=== PATIENT | female | born 1980 | race Caucasian/White ===

== ENCOUNTER 2017-01-05 11:25 | Emergency (ER) | payer MEDICAID ==
[~2017-01-05] VITALS: Ht 167.6 cm; Wt 111.0 kg
[~2017-01-05 11:25] MED LIST: B-COTAB41 PO; CIPR500T4 PO; NAPR-576 PO; OMEP20TA PO; PYRI200T4 PO; TAB-TAB PO
[2017-01-05 11:28] VITALS: BP 126/89; PULSE 91; RESP 16; TEMP 98.7; O2SAT 97
--- NOTE | 2017-01-05 12:34 | RADHPO ---
EXAM DATE/TIME: 01/05/2017 12:05 [facility] COMPARISON: CHEST SINGLE AP, March 30, 2016, 19:36. INDICATIONS : Short of breath, cough. MEDICAL HISTORY : Arthritis. Ulcerative colitis. Gastroesophageal reflux disease. SURGICAL HISTORY : Tonsillectomy. Hysterectomy. section. Lumpectomy. ENCOUNTER: Initial ACUITY: 2 days PAIN SCORE: 0/10 LOCATION: chest FINDINGS: The cardiac silhouette is enlarged in transverse diameter. The lungs are free of acute parenchymal op acity. No effusions are identified. Osseous structures are intact. CONCLUSION: Cardiomegaly. No acute cardiopulmonary disease. Randell Hernández MD on January 05, 2017 at 12:32 Board Certified Radiologist. This report was verified electronically.
[2017-01-05] MEDS ORDERED: ALBU6.7H INH (13:14)
[2017-01-05] MEDS ORDERED: SUDA30TA2 PO (13:14)
[2017-01-05] MEDS ORDERED: CIPR750T2 PO (13:14)
--- NOTE | 2017-01-05 13:14 | PD ---
HPI Chief Complaint: Cold / Flu Symptoms Time Seen by Provider: 13:09 Travel History International Travel<30 days: No Contact w/Intl Traveler<30days: No Traveled to known affect area: No History of Present Illness HPI 36-year-old female with history of smoking, bronchitis, sinusitis in the past, presents to the ER today because she has had 3 weeks' history of sinus congestion, pain around the maxillary sinuses, coughing, nasal congestion, sore throat, and shortness of breath. She denies any fevers or any other issues. She states that it feels like her previous episodes of bronchitis. Modifying Factors: None Associated Signs & Symptoms: Cough, cold symptoms, sinus congestion, shortness of breath Risk Factors: Smoking, previous bronchitis PFSH Past Medical History Hx Anticoagulant Therapy: No Arthritis: Yes (Osteo-) Asthma: Yes Autoimmune Disease: No Anxiety: Yes Depression: Yes Heart Rhythm Problems: No Cancer: No Cardiovascular Problems: No High Cholesterol: No Chemotherapy: No Chest Pain: No Congestive Heart Failure: No COPD: No Cerebrovascular Accident: No Diabetes: No Diminished Hearing: No Endocrine: No Gastrointestinal Disorders: Yes (ULCERATIVE COLITIS) GERD: Yes Genitourinary: No Headaches: Yes (ON AND OFF) Hiatal Hernia: No Hypertension: No Immune Disorder: No Implanted Vascular Access Dvce: No Kidney Stones: No Musculoskeletal: Yes Neurologic: Yes Psychiatric: No Reproductive: No Respiratory: Yes (ASTHMA) Integumentary: Yes (Psoriasis, eczema) Migraines: Yes (GETS VISION CHANGES DURING MIGRAINE) Radiation Therapy: No Renal Failure: No Seizures: No Sickle Cell Disease: No Sleep Apnea: No Thyroid Disease: No Ulcer: No Tetanus Vaccination: < 5 Years Influenza Vaccination: Yes PNEUMOCCOCAL Vaccine (Year): 2 ?: Not Tubal Ligation: Yes Past Surgical History Abdominal Surgery: No AICD: No Arteriovenous Shunt: No Cardiac Surgery: No Section: Yes (X's 2) Ear Surgery: No Endocrine Surgery: No Eye Surgery: No Genitourinary Surgery: No Gynecologic Surgery: Yes ((R) breast lumpectomy, 2 c-sections, tubal) Insulin Pump: No Joint Replacement: No Neurologic Surgery: No Oral Surgery: Yes (TONSILLECTOMY) Pacemaker: No Thoracic Surgery: No Tonsillectomy: Yes Social History Alcohol Use: Yes (OCC) Tobacco Use: Yes (1ppd) Substance Use: No Allergies-Medications (Allergen,Severity, Reaction): Coded Allergies: Bactrim (Verified Allergy, Severe, Rash, "throat tightness", 01/05/17) Keflex (Verified Allergy, Severe, Rash, "thoat tightness", 01/05/17) Reported Meds & Prescriptions Reported Meds & Active Scripts Active No Active Prescriptions or Reported Medications Review of Systems Except as stated in HPI: all other systems reviewed are Neg Physical Exam Narrative GENERAL: Well-nourished, well-developed patient. SKIN: Warm and dry. HEAD: Normocephalic. EYES: No scleral icterus. No injection or drainage. ENT: Mucosa pink and moist. Mild erythema with no exudates. No uvular edema. No uvular, palatal, or tonsillar deviation. Airway patent. Nasal turbinates appear normal without nasal blood, purulent drainage or septal hematoma. NECK: Supple, trachea midline. No JVD or lymphadenopathy. CARDIOVASCULAR: Regular rate and rhythm without murmurs, gallops, or rubs. RESPIRATORY: Breath sounds equal bilaterally. No accessory muscle use. GASTROINTESTINAL: Abdomen soft, non-tender, nondistended. MUSCULOSKELETAL: No cyanosis, or edema. BACK: Nontender without obvious deformity. No CVA tenderness. Data Data Last Documented VS Vital Signs Date Time Temp Pulse Resp B/P Pulse Ox O2 Delivery O2 Flow Rate FiO2 01/05/17 11:37 16 97 Room Air 01/05/17 11:28 98.7 91 126/89 Orders Chest, Single Ap (01/05/17 11:47) [facility] Medical Decision Making Medical Screen Exam Complete: Yes Emergency Medical Condition: Yes Medical Record Reviewed: Yes Interpretation(s) Last 24 hours Impressions Chest X-Ray 01/05/17 1147 Signed Impressions: Service Date/Time: Thursday, January 05, 2017 12:05 - CONCLUSION: Cardiomegaly. No acute cardiopulmonary disease. Randell Hernández MD Differential Diagnosis Cough, sinus pain, congestion, shortness of breathURI versus bronchitis versus sinusitis versus pneumonia Narrative Course Chest x-ray does not show any signs of acute pneumonia. I suspect that she may have some underlying sinusitis and bronchitis. I have talked her regarding the smoking and that this could be contributing to her recurrent bronchitis and sinusitis issues. Patient states understanding. My plan would be to treat her symptomatically with antibiotics. Return for any worsening in symptoms as needed. Follow-up with primary care physician. The plan has been discussed with her and she states understanding. Diagnosis Primary Impression: Sinusitis Additional Impression: Bronchitis Admitting Information Admitting Physician Requests: Admit Med/Other Pt SpecificInfo: Prescription(s) given Scripts Pseudoephedrine (Sudafed)30 Mg Tab30 Mg PO Q6H PRN (NASAL CONGESTION) #20 TAB Ref 0 Prov:Claudette Rausch MD 01/05/17 Albuterol 6.7 GM Inh (Proventil Hfa 6.7 GM Inh)90 Mcg/Act Aer2 Puff INH Q4-6H PRN (SHORTNESS OF BREATH) #1 INHALER Ref 0 Prov:Claudette Rausch MD 01/05/17 Ciprofloxacin 750 Mg Fom239 Mg PO BID 7 Days Ref 0 Prov:Claudette Ruasch MD 01/05/17 Disposition: 01 DISCHARGE HOME Condition: Stable Claudette Rausch MD Jan 05, 2017 13:14
== END 2017-01-05 13:35 | disposition home or self-care (01) ==
LOC: PHED 11:25
DX: J32.9 Chronic sinusitis, unspecified (principal); J40 Bronchitis, not specified as acute or chronic; J45.909 Unspecified asthma, uncomplicated; K21.9 Gastro-esophageal reflux disease without esophagitis; F17.210 Nicotine dependence, cigarettes, uncomplicated
CPT/HCPCS: 71010; 99283

== ENCOUNTER 2017-05-10 09:43 | Emergency (ER) | payer MEDICAID ==
[~2017-05-10] VITALS: Ht 167.6 cm; Wt 109.3 kg
[~2017-05-10 09:43] MED LIST changes: +ALBU6.7H INH; -B-COTAB41 PO; -CIPR500T4 PO; +CIPR750T2 PO; -NAPR-576 PO; -OMEP20TA PO; -PYRI200T4 PO; +SUDA30TA2 PO; -TAB-TAB PO
[2017-05-10 09:45] VITALS: BP 148/103; PULSE 97; RESP 16; TEMP 98.2; O2SAT 98
[2017-05-10] MEDS ORDERED: PROZ20CA11 PO (09:57)
[2017-05-10 10:26] LABS: BLOOD, URINE LARGE (NEG); GLUCOSE,URINE NEG (NEG); KETONE, URINE NEG (NEG)
[2017-05-10 10:33] LABS: NITRITE,URINE POS (NEG); URINE COLOR BROWN (YELLW/STRAW)
[2017-05-10 10:36] LABS: RBC, URINE INNUM /hpf (0-3); WBC, URINE INNUM /hpf (0-5)
--- NOTE | 2017-05-10 10:36 | PD ---
HPI Chief Complaint: Complaint Time Seen by Provider: 10:24 Travel History International Travel<30 days: No Contact w/Intl Traveler<30days: No Traveled to known affect area: No History of Present Illness HPI 36-year-old female complains of left low back pain, left low quadrant abdominal pain, hematuria. Patient states that she started having pressure in the bladder and hematuria since yesterday. Patient started having left low back pain upper quadrant abdominal pain this morning. Patient denies any fever chills. Patient denies any dysuria or frequency. Patient denies any vaginal discharge or bleeding. Patient states the pain aching pain localized left low back and left low quadrant of the abdomen. Patient denies any pain radiation. 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 Patient was seen by urologist Dr. Amos in the past. Patient has history of anxiety, depression, GERD, asthma, migraine, ulcerative colitis. Patient status post hysterectomy and tubal ligation. PFSH Past Medical History Hx Anticoagulant Therapy: No Arthritis: Yes (Osteo-) Asthma: Yes Autoimmune Disease: No Anxiety: Yes Depression: Yes Heart Rhythm Problems: No Cancer: No Cardiovascular Problems: No High Cholesterol: No Chemotherapy: No Chest Pain: No Congestive Heart Failure: No COPD: No Cerebrovascular Accident: No Diabetes: No Diminished Hearing: No Endocrine: No Gastrointestinal Disorders: Yes (ULCERATIVE COLITIS) GERD: Yes Genitourinary: No Headaches: Yes (ON AND OFF) Hiatal Hernia: No Hypertension: No Immune Disorder: No Implanted Vascular Access Dvce: No Kidney Stones: No Musculoskeletal: Yes Neurologic: Yes Psychiatric: No Reproductive: No Respiratory: Yes (ASTHMA) Integumentary: Yes (Psoriasis, eczema) Migraines: Yes (GETS VISION CHANGES DURING MIGRAINE) Radiation Therapy: No Renal Failure: No Seizures: No Sickle Cell Disease: No Sleep Apnea: No Thyroid Disease: No Ulcer: No PNEUMOCCOCAL Vaccine (Year): 2 ?: Not Tubal Ligation: Yes Past Surgical History Abdominal Surgery: No AICD: No Arteriovenous Shunt: No Cardiac Surgery: No Section: Yes (X's 2) Ear Surgery: No Endocrine Surgery: No Eye Surgery: No Genitourinary Surgery: Yes (diverticuli removed from ureter) Gynecologic Surgery: Yes ((R) breast lumpectomy, 2 c-sections, tubal) Insulin Pump: No Joint Replacement: No Neurologic Surgery: No Oral Surgery: Yes (TONSILLECTOMY) Pacemaker: No Thoracic Surgery: No Tonsillectomy: Yes Social History Alcohol Use: Yes (OCC) Tobacco Use: Yes (1ppd) Substance Use: No Allergies-Medications (Allergen,Severity, Reaction): Coded Allergies: Bactrim (Verified Allergy, Severe, Rash, "throat tightness", 05/10/17) Keflex (Verified Allergy, Severe, Rash, "thoat tightness", 05/10/17) Reported Meds & Prescriptions Reported Meds & Active Scripts Active Cipro (Ciprofloxacin HCl) 500 Mg Tab 500 Mg PO BID Proventil Hfa 6.7 GM Inh (Albuterol Sulfate) 90 Mcg/Act Aer 2 Puff INH Q4-6H PRN Reported Prozac (Fluoxetine HCl) 20 Mg Cap 20 Mg PO DAILY Review of Systems General / Constitutional: No: Fever Eyes: No: Visual changes HENT: No: Headaches Cardiovascular: No: Chest Pain or Discomfort Respiratory: No: Shortness of Breath Gastrointestinal: Positive: Abdominal Pain Genitourinary: Positive: Hematuria, No: Dysuria Musculoskeletal: No: Pain Skin: No Rash Neurologic: No: Weakness Psychiatric: No: Depression Endocrine: No: Polydipsia Hematologic/Lymphatic: No: Easy Bruising Physical Exam Narrative GENERAL: Well-nourished, well-developed patient. SKIN: Focused skin assessment warm/dry. HEAD: Normocephalic. EYES: No scleral icterus. No injection or drainage. NECK: Supple, trachea midline. No JVD or lymphadenopathy. CARDIOVASCULAR: Regular rate and rhythm without murmurs, gallops, or rubs. RESPIRATORY: Breath sounds equal bilaterally. No accessory muscle use. GASTROINTESTINAL: Abdomen soft, nondistended. Mild tenderness on palpation left lower quadrant of the abdomen. No rebound tenderness. No mass. MUSCULOSKELETAL: No cyanosis, or edema. BACK: Nontender without obvious deformity. No CVA tenderness. Neurologic exam normal. Data Data Last Documented VS Vital Signs Date Time Temp Pulse Resp B/P Pulse Ox O2 Delivery O2 Flow Rate FiO2 05/10/17 12:07 84 18 144/90 97 05/10/17 09:45 98.2 Orders Urinalysis - C+S If Indicated (05/10/17 10:08) Ct Abd/Pel W/O Iv Contrast (05/10/17 10:31) Ed Urine Pregnancytest Poc (05/10/17 10:32) Urine Culture (05/10/17 10:13) Levofloxacin (Levaquin) (05/10/17 12:00) Labs Laboratory Tests Test 05/10/17 10:13 Urine Color BROWN Urine Turbidity CLOUDY Urine pH 6.0 Urine Specific [place] 1.017 Urine Protein 100 mg/dL Urine Glucose (UA) NEG mg/dL Urine Ketones NEG mg/dL Urine Occult Blood LARGE Urine Nitrite POS Urine Bilirubin NEGATIVE Urine Leukocyte Esterase MOD Urine RBC INNUM /hpf Urine WBC INNUM /hpf Urine WBC Clumps MOD Urine Squamous Epithelial > 8 /hpf Cells Urine Bacteria MANY /hpf Microscopic Urinalysis Comment CULTURE INDICATED MDM Medical Decision Making Medical Screen Exam Complete: Yes Emergency Medical Condition: Yes Interpretation(s) 11 AM. UA positive for WC RBC and bacteria. 11:46 AM. Last Impressions Abdomen/Pelvis CT 05/10/17 1031 Signed Impressions: Service Date/Time: April 10:58 - CONCLUSION: 1. Inflammatory changes and wall thickening involving the urinary bladder suggesting acute cystitis. Clinical correlation is recommended. 2. Multiple calcified nonobstructing bilateral renal calculi. 3. 2.4 cm left renal cyst. 4. Uncomplicated colonic diverticulosis. 5. Mild degenerative changes involving the lumbar spine. Arsen Browne MD Differential Diagnosis Differential diagnosis including UTI, pyelonephritis, nephrolithiasis, ovarian cyst, colitis. Narrative Course 36-year-old female with left lower quadrant abdominal pain, left low back pain, hematuria. Levaquin 750 mg by mouth given. Diagnosis Primary Impression: Hemorrhagic cystitis Patient Instructions: General Instructions Additional Instructions: Cipro as directed. Ultram as needed for pain. Follow-up with personal physician. Return if persistent problem or worse. Med/Other Pt SpecificInfo: Prescription(s) given Scripts Tramadol 50 Mg Tab50 Mg PO Q6H PRN (PAIN) #20 TAB Ref 0 Prov:David Renee MD 05/10/17 Ciprofloxacin (Cipro)500 Mg Qyk252 Mg PO BID #20 TAB Ref 0 Prov:David Renee MD 05/10/17 Disposition: 01 DISCHARGE HOME Condition: Stable David Renee MD May 10, 2017 10:36
[2017-05-10 10:37] LABS: BACTERIA, URINE MANY /hpf; COMMENT (UR) CULTURE INDICATED; CULTURE IF INDICATED CULTURE INDICATED; SQUAMOUS EPITHELIAL CELL URINE > 8 /hpf (0-5)
--- NOTE | 2017-05-10 11:38 | RADHPO ---
EXAM DATE/TIME: 05/10/2017 10:58 [facility] COMPARISON: No previous studies available for comparison. INDICATIONS : Left flank pain. Hematuria. ORAL CONTRAST: No oral contrast ingested. RADIATION DOSE: 24.65 CTDIvol (mGy) MEDICAL HISTORY : Gastroesophageal reflux disease. Colitis. SURGICAL HISTORY : section. ENCOUNTER: Initial ACUITY: 1 day PAIN SCALE: 7/10 LOCATION: Left flank TECHNIQUE: Volumetric scanning of the abdomen and pelvis was performed. Using automated exposure control and ad justment of the mA and/or kV according to patient size, radiation dose was kept as low as reasonably achievable to obtain optimal diagnostic quality images. FINDINGS: LOWER LUNGS: The visualized lower lungs are clear. LIVER: Homogeneous density without lesion. There is no dilation of the biliary tree. No calcified gallston es. SPLEEN: Normal size without lesion. PANCREAS: Within normal limits. KIDNEYS: Normal in size and shape. There is no mass or hydronephrosis. Multiple calcified nonobstructing bila teral renal calculi are noted with largest on left measuring 4 mm. There is a simple cyst within left kidney measuring 2.4 centers. ADRENAL GLANDS: Within normal limits. VASCULAR: There is no aortic aneurysm. BOWEL/MESENTERY: Uncomplicated colonic diverticulosis is noted. The appendix is normal. ABDOMINAL WALL: Within normal limits. RETROPERITONEUM: There is no lymphadenopathy. BLADDER: There is diffuse wall thickening and inflammatory changes suggesting acute cystitis. Clinical correla tion is recommended. REPRODUCTIVE: Within normal limits. INGUINAL: There is no lymphadenopathy or hernia. MUSCULOSKELETAL: Mild degenerative changes involving the lumbar spine. CONCLUSION: 1. Inflammatory changes and wall thickening involving the urinary bladder suggesting acute cystitis. Clinical correlation is recommended. 2. Multiple calcified nonobstructing bilateral renal calculi. 3. 2.4 cm left renal cyst. 4. Uncomplicated colonic diverticulosis. 5. Mild degenerative changes involving the lumbar spine. Arsen Browne MD on May 10, 2017 at 11:31 Board Certified Radiologist. This report was verified electronically.
[2017-05-10] MEDS ORDERED: CIPR-9 PO (11:54)
[2017-05-10] MEDS ORDERED: LEVOFLOXACIN 750 MG TAB PO ONE (12:00)
[2017-05-10 12:07] VITALS: BP 144/90
[2017-05-10] MEDS ORDERED: TRAM50TA PO (12:11)
== END 2017-05-10 12:18 | disposition home or self-care (01) ==
LOC: PHED 09:43
DX: N30.91 Cystitis, unspecified with hematuria (principal); B96.20 Unspecified Escherichia coli [E. coli] as the cause of diseases classified elsewhere
CPT/HCPCS: 74176; 81001; 84703; 87077; 87086; 87186

== ENCOUNTER 2017-05-23 09:06 | Emergency (ER) | payer MEDICAID ==
[~2017-05-23] VITALS: Ht 167.6 cm; Wt 107.8 kg
[~2017-05-23 09:06] MED LIST changes: +CIPR-9 PO; -CIPR750T2 PO; +PROZ20CA11 PO; -SUDA30TA2 PO; +TRAM50TA PO
[2017-05-23 09:09] VITALS: BP 143/94; PULSE 97; RESP 20; TEMP 98.4; O2SAT 98
--- NOTE | 2017-05-23 09:24 | PD ---
HPI Chief Complaint: Allergic/Adverse Reaction Time Seen by Provider: 09:13 Travel History International Travel<30 days: No Contact w/Intl Traveler<30days: No Traveled to known affect area: No History of Present Illness HPI This is a 36-year-old female who presents to the emergency department with a red itchy rash that started yesterday. She took a tea tree oil and lavender bath to try to calm it down but this morning she woke up and the rash has spread over her breasts, legs and arms. She says she feels like she is burning all over, constant, severe associated with a little bit of sore throat. She denies any trouble breathing, wheezing or lightheadedness. She has had an allergic reaction once before when she was on Keflex and Bactrim. She is not on any medications currently. She is not using any new soaps or detergents. PFSH Past Medical History Hx Anticoagulant Therapy: No Arthritis: Yes (Osteo-) Asthma: Yes Autoimmune Disease: No Anxiety: Yes Depression: Yes Heart Rhythm Problems: No Cancer: No Cardiovascular Problems: No High Cholesterol: No Chemotherapy: No Chest Pain: No Congestive Heart Failure: No COPD: No Cerebrovascular Accident: No Diabetes: No Diminished Hearing: No Endocrine: No Gastrointestinal Disorders: Yes (ULCERATIVE COLITIS) GERD: Yes Genitourinary: No Headaches: Yes (ON AND OFF) Hiatal Hernia: No Heparin Induced Thrombocytopen: No Hypertension: No Immune Disorder: No Implanted Vascular Access Dvce: No Kidney Stones: No Musculoskeletal: Yes Neurologic: Yes Psychiatric: No Reproductive: No Respiratory: Yes (ASTHMA) Integumentary: Yes (Psoriasis, eczema) Migraines: Yes (GETS VISION CHANGES DURING MIGRAINE) Radiation Therapy: No Renal Failure: No Seizures: No Sickle Cell Disease: No Sleep Apnea: No Thyroid Disease: No Ulcer: No Tetanus Vaccination: < 5 Years PNEUMOCCOCAL Vaccine (Year): 2 ?: Not Tubal Ligation: Yes Past Surgical History Abdominal Surgery: No AICD: No Arteriovenous Shunt: No Cardiac Surgery: No Section: Yes (X's 2) Ear Surgery: No Endocrine Surgery: No Eye Surgery: No Genitourinary Surgery: Yes (diverticuli removed from ureter) Gynecologic Surgery: Yes ((R) breast lumpectomy, 2 c-sections, tubal) Insulin Pump: No Joint Replacement: No Neurologic Surgery: No Oral Surgery: Yes (TONSILLECTOMY) Pacemaker: No Thoracic Surgery: No Tonsillectomy: Yes Social History Alcohol Use: Yes (OCC) Tobacco Use: Yes (1ppd) Substance Use: No Allergies-Medications (Allergen,Severity, Reaction): Coded Allergies: Bactrim (Verified Allergy, Severe, Rash, "throat tightness", 05/23/17) Keflex (Verified Allergy, Severe, Rash, "thoat tightness", 05/23/17) Reported Meds & Prescriptions Reported Meds & Active Scripts Active Proventil Hfa 6.7 GM Inh (Albuterol Sulfate) 90 Mcg/Act Aer 2 Puff INH Q4-6H PRN Reported Prozac (Fluoxetine HCl) 20 Mg Cap 20 Mg PO DAILY Review of Systems Except as stated in HPI: all other systems reviewed are Neg Physical Exam Narrative GENERAL:Well appearing, no acute distress SKIN: Erythematous patchy rash, blanching, over the legs, abdomen and chest HEAD: Atraumatic. Normocephalic. EYES: Pupils equal and round. No injection or drainage. ENT: Moist mucous membranes. No posterior pharyngeal erythema or exudates. NECK: Trachea midline. CARDIOVASCULAR: Regular rate and rhythm. No murmur appreciated. RESPIRATORY: Clear to auscultation. Breath sounds equal bilaterally. GASTROINTESTINAL: Abdomen soft, non-tender, nondistended. MUSCULOSKELETAL: No obvious deformities. NEUROLOGICAL: Awake and alert. No obvious cranial nerve deficits. Moving all extremities PSYCHIATRIC: Appropriate mood and affect; insight and judgment normal. Data Data Last Documented VS Vital Signs Date Time Temp Pulse Resp B/P Pulse Ox O2 Delivery O2 Flow Rate FiO2 05/23/17 09:13 16 98 Room Air 05/23/17 09:09 98.4 97 143/94 Orders Methylprednisolone So Succ Inj (Solumedr (05/23/17 09:30) Hydroxyzine Hcl Inj (Vistaril Inj) (05/23/17 09:30) MDM Medical Decision Making Medical Screen Exam Complete: Yes Emergency Medical Condition: Yes Interpretation(s) afebrile, mild tachycardia, hypertension Differential Diagnosis acute allergic reaction, anaphylaxis Narrative Course This is a 36-year-old female who presents to the emergency department with an acute allergic reaction with hives on her body. She has no wheezing, no posterior pharyngeal erythema or mucous membrane involvement. She was given IM steroids and I am hydroxyzine in the emergency department and will be discharged home on continued prednisone and antihistamines. Diagnosis Primary Impression: Acute allergic reaction Qualified Code: T78.40XA - Acute allergic reaction, initial encounter Patient Instructions: General Instructions Additional Instructions: If you develop swelling of the throat or coughing a lot, wheezing or trouble breathing, throwing up or having diarrhea, feeling dizzy or passing out, or spreading of your rash return to the emergency room immediately as you may be having a life threatening allergic reaction. Complete your course of steroids and take hydroxyzine every 6 hours for the next 48 hours and then as needed for itching or other symptoms. Med/Other Pt SpecificInfo: Prescription(s) given Scripts Hydroxyzine HCl 25 Mg Tab1-2 Tab PO QID PRN (ITCHING) #14 TAB Ref 0 Prov:Carola Terry MD 05/23/17 Prednisone 20 Mg Tab40 Mg PO DAILY 4 Days Prov:Carola Terry MD 05/23/17 Disposition: 01 DISCHARGE HOME Condition: Stable Carola Terry MD May 23, 2017 09:24
[2017-05-23] MEDS ORDERED: hydrOXYzine HCL 50 MG/ML VIAL IM ONE (09:30)
[2017-05-23] MEDS ORDERED: methylPREDNISolone SOD SUCC 125 MG/2 ML VIAL IM ONE (09:30)
[2017-05-23] MEDS ORDERED: PRED20 PO (09:37)
[2017-05-23] MEDS ORDERED: HYDR-3133 PO (09:37)
== END 2017-05-23 09:46 | disposition home or self-care (01) ==
LOC: PHED 09:06
DX: T78.40XA Allergy, unspecified, initial encounter (principal); X58.XXXA Exposure to other specified factors, initial encounter
CPT/HCPCS: 96372; 99284; J2930; J3410

== ENCOUNTER 2017-07-09 07:22 | Inpatient (IN) | payer MEDICAID, OTHER ==
[~2017-07-09] VITALS: Ht 167.6 cm; Wt 107.4 kg
[~2017-07-09 07:22] MED LIST changes: -CIPR-9 PO; +HYDR-3133 PO; +PRED20 PO; -TRAM50TA PO
[2017-07-09 07:45] VITALS: BP 134/95; PULSE 94; RESP 16; TEMP 98.4; O2SAT 95
[2017-07-09] MEDS ORDERED: SODIUM CHLOR 0.9% 1000 ML INJ 1,000 ML IV ONE (07:45)
--- NOTE | 2017-07-09 07:48 | PD ---
HPI Chief Complaint: overdose Time Seen by Provider: 07:37 Travel History International Travel<30 days: No Contact w/Intl Traveler<30days: No History of Present Illness HPI This is a 36 year old female who presents to the emergency department after a suicide attempt. She says last night she couldn't take it anymore and overdosed on tramadol and Vistaril. She was surprised when she woke up this morning and she wanted to end it all so she took a straight blade and stabbed both of her wrists. Ultimately she gave up and called the ambulance. She says she's never done anything like this before. She says she was hospitalized for depression as a teenager but not since then. PFSH Past Medical History Hx Anticoagulant Therapy: No Arthritis: Yes (Osteo-) Asthma: Yes Autoimmune Disease: No Anxiety: Yes Depression: Yes Heart Rhythm Problems: No Cancer: No Cardiovascular Problems: No High Cholesterol: No Chemotherapy: No Chest Pain: No Congestive Heart Failure: No COPD: No Cerebrovascular Accident: No Diabetes: No Diminished Hearing: No Endocrine: No Gastrointestinal Disorders: Yes (ULCERATIVE COLITIS) GERD: Yes Genitourinary: No Headaches: Yes (ON AND OFF) Hiatal Hernia: No Heparin Induced Thrombocytopen: No Hypertension: No Immune Disorder: No Implanted Vascular Access Dvce: No Kidney Stones: No Musculoskeletal: Yes Neurologic: Yes Psychiatric: No Reproductive: No Respiratory: Yes (ASTHMA) Integumentary: Yes (Psoriasis, eczema) Migraines: Yes (GETS VISION CHANGES DURING MIGRAINE) Radiation Therapy: No Renal Failure: No Seizures: No Sickle Cell Disease: No Sleep Apnea: No Thyroid Disease: No Ulcer: No PNEUMOCCOCAL Vaccine (Year): 2 Tubal Ligation: Yes Past Surgical History Abdominal Surgery: No AICD: No Arteriovenous Shunt: No Cardiac Surgery: No Section: Yes (X's 2) Ear Surgery: No Endocrine Surgery: No Eye Surgery: No Genitourinary Surgery: Yes (diverticuli removed from ureter) Gynecologic Surgery: Yes ((R) breast lumpectomy, 2 c-sections, tubal) Insulin Pump: No Joint Replacement: No Neurologic Surgery: No Oral Surgery: Yes (TONSILLECTOMY) Pacemaker: No Thoracic Surgery: No Tonsillectomy: Yes Social History Alcohol Use: Yes (OCC) Tobacco Use: Yes (1ppd) Substance Use: No Allergies-Medications (Allergen,Severity, Reaction): Coded Allergies: Bactrim (Verified Allergy, Severe, Rash, "throat tightness", 07/09/17) Keflex (Verified Allergy, Severe, Rash, "thoat tightness", 07/09/17) Reported Meds & Prescriptions Reported Meds & Active Scripts Active Hydroxyzine HCl 25 Mg Tab 1-2 Tab PO QID PRN Prednisone 20 Mg Tab 40 Mg PO DAILY 4 Days Proventil Hfa 6.7 GM Inh (Albuterol Sulfate) 90 Mcg/Act Aer 2 Puff INH Q4-6H PRN Reported Prozac (Fluoxetine HCl) 20 Mg Cap 20 Mg PO DAILY Review of Systems Except as stated in HPI: all other systems reviewed are Neg Physical Exam Narrative GENERAL:Well appearing, no acute distress SKIN: 2.5 cm laceration along the radial volar aspect of the right forearm and 4 cm laceration along the distal left radial forearm HEAD: Atraumatic. Normocephalic. EYES: Pupils equal and round. No injection or drainage. ENT: Moist mucous membranes NECK: Trachea midline. CARDIOVASCULAR: 2+ bilateral radial pulses with normal capillary refill in both hands. RESPIRATORY: Clear to auscultation. Breath sounds equal bilaterally. GASTROINTESTINAL: Abdomen soft, non-tender, nondistended. MUSCULOSKELETAL: No obvious deformities. NEUROLOGICAL: Awake and alert. No obvious cranial nerve deficits. Moving all extremities.Strength and sensation intact in the median, ulnar and radial distributions of both hands. PSYCHIATRIC: Appropriate mood and affect; insight and judgment normal. Data Data Last Documented VS Vital Signs Date Time Temp Pulse Resp B/P Pulse Ox O2 Delivery O2 Flow Rate FiO2 07/09/17 09:49 87 16 122/74 98 Nasal Cannula 2 07/09/17 07:50 98.4 Orders Complete Blood Count With Diff (07/09/17 07:37) Comprehensive Metabolic Panel (07/09/17 07:37) Alcohol (Ethanol) (07/09/17 07:37) Drug Screen, Random Urine (07/09/17 07:37) Tylenol (Acetaminophen) (07/09/17 07:37) Salicylates (Aspirin) (07/09/17 07:37) Electrocardiogram (07/09/17 ) Sodium Chlor 0.9% 1000 Ml Inj (Ns 1000 M (07/09/17 07:45) ^ Insert Iv (07/09/17 07:37) Psych Screen (07/09/17 07:37) Cta Up Extrem W Iv Cont W 3d (07/09/17 07:59) Iohexol 350 Inj (Omnipaque 350 Inj) (07/09/17 09:25) Wound Care (07/09/17 11:13) Lidocai-Epi 1%-1:100,000 Inj (Xylocaine- (07/09/17 11:15) Lidocaine 1% Inj (50 Ml) (Xylocaine 1% I (07/09/17 11:30) Labs Laboratory Tests Test 07/09/17 07/09/17 08:10 09:30 White Blood Count 11.1 TH/MM3 Red Blood Count 5.30 MIL/MM3 Hemoglobin 15.0 GM/DL Hematocrit 45.5 % Mean Corpuscular Volume 85.8 FL Mean Corpuscular Hemoglobin 28.3 PG Mean Corpuscular Hemoglobin 33.0 % Concent Red Cell Distribution Width 16.7 % Platelet Count 284 TH/MM3 Mean Platelet Volume 8.1 FL Neutrophils (%) (Auto) 58.8 % Lymphocytes (%) (Auto) 32.0 % Monocytes (%) (Auto) 6.3 % Eosinophils (%) (Auto) 2.0 % Basophils (%) (Auto) 0.9 % Neutrophils # (Auto) 6.5 TH/MM3 Lymphocytes # (Auto) 3.5 TH/MM3 Monocytes # (Auto) 0.7 TH/MM3 Eosinophils # (Auto) 0.2 TH/MM3 Basophils # (Auto) 0.1 TH/MM3 CBC Comment DIFF FINAL Differential Comment Sodium Level 137 MEQ/L Potassium Level 3.4 MEQ/L Chloride Level 106 MEQ/L Carbon Dioxide Level 24.3 MEQ/L Anion Gap 7 MEQ/L Blood Urea Nitrogen 12 MG/DL Creatinine 0.75 MG/DL Estimat Glomerular Filtration 86 ML/MIN Rate Random Glucose 104 MG/DL Calcium Level 8.3 MG/DL Total Bilirubin 0.4 MG/DL Aspartate Amino Transf 14 U/L (AST/SGOT) Alanine Aminotransferase 20 U/L (ALT/SGPT) Alkaline Phosphatase 90 U/L Total Protein 6.5 GM/DL Albumin 3.3 GM/DL Salicylates Level 4.2 MG/DL Acetaminophen Level LESS THAN 2.0 MCG/ML Ethyl Alcohol Level LESS THAN 3 MG/DL Urine Opiates Screen NEG Urine Barbiturates Screen NEG Urine Amphetamines Screen NEG Urine Benzodiazepines Screen POS Urine Cocaine Screen NEG Urine Cannabinoids Screen NEG MDM Medical Decision Making Medical Screen Exam Complete: Yes Emergency Medical Condition: Yes Interpretation(s) Afebrile, mild tachycardia, normotensive Mild leukocytosis Mild hypokalemia Acetaminophen negative Salicylate is 4.2 Urine drug screen is positive for benzodiazepines Alcohol is 3 EKG: Normal intervals CTA left upper extremity is reassuring Differential Diagnosis Acetaminophen toxicity, salicylate toxicity, benzodiazepine overdose, radial artery injury, laceration Narrative Course This is a 36-year-old female who presents to the emergency department having attempted suicide. She attempted overdose last night and then when it didn't work this morning and cut her wrists. She seems very high risk and will likely require psychiatric admission. She is placed on a monitor and an IV was established. Labs and EKG are all reassuring. CTA was obtained of the left upper extremity given the depth of her laceration which was reassuring. Lacerations were repaired at the bedside to the physician spa assistant manager. I think patient is medically cleared for psychiatric evaluation. Carola Terry MD Jul 09, 2017 07:48
[2017-07-09 07:50] VITALS: BP 134/88; PULSE 94; RESP 16; TEMP 98.4; O2SAT 98
[2017-07-09 08:30] LABS: AUTOMATED NEUTROPHIL # 6.5 TH/MM3 (1.8-7.7); BASOPHIL # 0.1 TH/MM3 (0-0.2); BASOPHIL % 0.9 % (0.0-2.0); EOSINOPHIL # 0.2 TH/MM3 (0-0.4); HEMATOCRIT 45.5 % (35.0-46.0); HEMO FLAGS DIFF FINAL; LYMPHOCYTE # 3.5 TH/MM3 (1.0-4.8); MEAN CELL VOLUME 85.8 FL (80.0-100.0); MEAN CORPUSCULAR HEMOGLOBIN 28.3 PG (27.0-34.0); MONO % 6.3 % (0.0-8.0); NEUT % 58.8 % (16.0-70.0); PLATELET COUNT 284 TH/MM3 (150-450); RED CELL DISTRIBUTION WIDTH 16.7 % (11.6-17.2); WHITE BLOOD COUNT 11.1 TH/MM3 (4.0-11.0)
[2017-07-09 08:54] LABS: ANION GAP 7 MEQ/L (5-15)
[2017-07-09 08:58] LABS: ALKALINE PHOSPHATASE 90 U/L (45-117); ALT (GPT) 20 U/L (10-53); AST (GOT) 14 U/L (15-37); BICARBONATE 24.3 MEQ/L (21.0-32.0); BLOOD UREA NITROGEN 12 MG/DL (7-18); CHLORIDE 106 MEQ/L (98-107); GLOMERULAR FILTRATION RATE 86 ML/MIN (>89); POTASSIUM 3.4 MEQ/L (3.5-5.1); SODIUM (NA) 137 MEQ/L (136-145); TOTAL BILIRUBIN ADULT 0.4 MG/DL (0.2-1.0)
[2017-07-09 09:00] LABS: ACETAMINOPHEN LESS THAN 2.0 MCG/ML (10.0-30.0)
[2017-07-09 09:01] LABS: ALCOHOL LESS THAN 3 MG/DL (0-5)
[2017-07-09] MEDS ORDERED: IOHEXOL 350 MG/ML 10 ML VIAL (for RAD DIAG) IV ONE (09:25)
[2017-07-09 09:49] VITALS: BP 122/74; PULSE 87; RESP 16; O2SAT 98
--- NOTE | 2017-07-09 10:35 | RADRPT ---
EXAM DATE/TIME: 07/09/2017 09:10 [facility] COMPARISON: No previous studies available for comparison. INDICATIONS : Left distal forearm laceration, evaluate for radial artery trauma. IV CONTRAST: 100 cc Omnipaque 350 (iohexol) IV RADIATION DOSE: 13.29 CTDIvol (mGy) MEDICAL HISTORY : Gastroesophageal reflux disease. asthma SURGICAL HISTORY : None. ENCOUNTER: Initial ACUITY: 1 day PAIN SCALE: 8/10 LOCATION: Left distal forearm TECHNIQUE: Volumetric scanning was performed using a multirow detector CT scanner. Using automated exposure cont rol and adjustment of the mA and/or kV according to patient size, radiation dose was kept as low as r easonably achievable to obtain optimal diagnostic quality images. The data was post processed with a variety of visualization algorithms including full-volume maximum intensity projection, multiplanar sliding thin-slab reformation, curved-planar reformation, and surface-rendering techniques. Using au tomated exposure control and adjustment of the mA and/or kV according to patient size, radiation dose was kept as low as reasonably achievable to obtain optimal diagnostic quality images. DICOM format image data is available electronically for review and comparison. FINDINGS: The radial artery is patent at the wrist but does have some air around the artery at the level of the wrist. There is no active extravasation. The interosseous artery is identified in the mid forearm. The ulnar artery is identified at the wris t. I don't have an adequate view of the palmar arch to determine whether this is continuous or discontin uous. Jem test could be used to sort out such. CONCLUSION: There is no active extravasation. Both the radial and ulnar artery are present at the wrist. There is some air around the radial artery at the site of trauma without active extravasation. Ruddy Galarza MD FACR on July 09, 2017 at 10:30 Board Certified Radiologist. This report was verified electronically.
[2017-07-09] MEDS ORDERED: LIDOCAINE 1%/EPINEPHrine 1:100,000 SOLN 20 ML VIAL INFIL ONE (11:15)
[2017-07-09] MEDS ORDERED: LIDOCAINE HCL 1% 50 ML VIAL INFIL ONE (11:30)
--- NOTE | 2017-07-09 12:35 | PD ---
Physical Exam Date Seen by Provider: Jul 09, 2017 Time Seen by Provider: 12:33 Narrative 36-year-old female that presents to the ED for evaluation of lacerations. I was asked by my attending to repair lacerations. Please refer to her note. Data Data Last Documented VS Vital Signs Date Time Temp Pulse Resp B/P Pulse Ox O2 Delivery O2 Flow Rate FiO2 07/09/17 09:49 87 16 122/74 98 Nasal Cannula 2 07/09/17 07:50 98.4 Orders Complete Blood Count With Diff (07/09/17 07:37) Comprehensive Metabolic Panel (07/09/17 07:37) Alcohol (Ethanol) (07/09/17 07:37) Drug Screen, Random Urine (07/09/17 07:37) Tylenol (Acetaminophen) (07/09/17 07:37) Salicylates (Aspirin) (07/09/17 07:37) Electrocardiogram (07/09/17 ) Sodium Chlor 0.9% 1000 Ml Inj (Ns 1000 M (07/09/17 07:45) ^ Insert Iv (07/09/17 07:37) Psych Screen (07/09/17 07:37) Cta Up Extrem W Iv Cont W 3d (07/09/17 07:59) Iohexol 350 Inj (Omnipaque 350 Inj) (07/09/17 09:25) Wound Care (07/09/17 11:13) Lidocai-Epi 1%-1:100,000 Inj (Xylocaine- (07/09/17 11:15) Lidocaine 1% Inj (50 Ml) (Xylocaine 1% I (07/09/17 11:30) Labs Laboratory Tests Test 07/09/17 07/09/17 08:10 09:30 White Blood Count 11.1 TH/MM3 Red Blood Count 5.30 MIL/MM3 Hemoglobin 15.0 GM/DL Hematocrit 45.5 % Mean Corpuscular Volume 85.8 FL Mean Corpuscular Hemoglobin 28.3 PG Mean Corpuscular Hemoglobin 33.0 % Concent Red Cell Distribution Width 16.7 % Platelet Count 284 TH/MM3 Mean Platelet Volume 8.1 FL Neutrophils (%) (Auto) 58.8 % Lymphocytes (%) (Auto) 32.0 % Monocytes (%) (Auto) 6.3 % Eosinophils (%) (Auto) 2.0 % Basophils (%) (Auto) 0.9 % Neutrophils # (Auto) 6.5 TH/MM3 Lymphocytes # (Auto) 3.5 TH/MM3 Monocytes # (Auto) 0.7 TH/MM3 Eosinophils # (Auto) 0.2 TH/MM3 Basophils # (Auto) 0.1 TH/MM3 CBC Comment DIFF FINAL Differential Comment Sodium Level 137 MEQ/L Potassium Level 3.4 MEQ/L Chloride Level 106 MEQ/L Carbon Dioxide Level 24.3 MEQ/L Anion Gap 7 MEQ/L Blood Urea Nitrogen 12 MG/DL Creatinine 0.75 MG/DL Estimat Glomerular Filtration 86 ML/MIN Rate Random Glucose 104 MG/DL Calcium Level 8.3 MG/DL Total Bilirubin 0.4 MG/DL Aspartate Amino Transf 14 U/L (AST/SGOT) Alanine Aminotransferase 20 U/L (ALT/SGPT) Alkaline Phosphatase 90 U/L Total Protein 6.5 GM/DL Albumin 3.3 GM/DL Salicylates Level 4.2 MG/DL Acetaminophen Level LESS THAN 2.0 MCG/ML Ethyl Alcohol Level LESS THAN 3 MG/DL Urine Opiates Screen NEG Urine Barbiturates Screen NEG Urine Amphetamines Screen NEG Urine Benzodiazepines Screen POS Urine Cocaine Screen NEG Urine Cannabinoids Screen NEG MDM Medical Record Reviewed: Yes Supervised Visit with HARLEEN: No Procedures Procedure Narrative LACERATION LOCATION: left wrist laceration LENGTH: 5 cm NUMBER OF STITCHES/OSMANY: 6 sutures REPAIR: The area of the laceration was prepped with Betadine and sterilely draped. The laceration was infiltrated with 1% Xylocaine. The wound was copiously irrigated and explored without evidence of foreign body, tendon injury or neurovascular injury. The wound was closed using 4-0 Prolene. This was a 1 layer repair. A sterile dressing was applied. The patient was advised to keep the dressing clean and dry. Patient tolerated the procedure well. LACERATION LOCATION: right wrist laceration LENGTH: 3 cm NUMBER OF STITCHES/OSMANY: 5 sutures REPAIR: The area of the laceration was prepped with Betadine and sterilely draped. The laceration was infiltrated with 1% Xylocaine. The wound was copiously irrigated and explored without evidence of foreign body, tendon injury or neurovascular injury. The wound was closed using 4-0 Prolene. This was a 1 layer repair. A sterile dressing was applied. The patient was advised to keep the dressing clean and dry. Patient tolerated the procedure well. Kendrick Pelaez Jul 09, 2017 12:35
[2017-07-09] MEDS ORDERED: MAGNESIUM HYDROXIDE SUSP 30 ML CUP PO PRN (15:00)
[2017-07-09] MEDS ORDERED: LORazepam 1 MG TAB PO PRN (15:00)
[2017-07-09] MEDS ORDERED: LORazepam 0.5 MG TAB PO PRN (15:00)
[2017-07-09] MEDS ORDERED: traZODone HCL 50 MG TAB PO PRN (15:00)
[2017-07-09] MEDS ORDERED: ACETAMINOPHEN 325 MG TAB PO PRN (15:00)
[2017-07-09] MEDS ORDERED: ALUMINUM/MAGNESIUM/SIMETH 30 ML CUP PO PRN (15:00)
[2017-07-09] MEDS ORDERED: LORazepam 2 MG/ML VIAL IM PRN ×2 (15:00)
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
--- NOTE | 2017-07-09 16:38 | EKG ---
Date Performed: 07/09/2017 Time Performed: 08:44:42 PTAGE: 36 years EKG: Sinus rhythm POSSIBLE LEFT ATRIAL ENLARGEMENT BORDERLINE ECG PREVIOUS TRACING : 07/09/2017 08.44 Since previous tracing, no significant change noted DOCTOR: Andrés Villatoro Interpretating Date/Time 07/09/2017 16:37:36
[2017-07-09 20:30] VITALS: BP 187/129; PULSE 99; RESP 16; TEMP 98.4; O2SAT 94
[2017-07-10] MEDS ORDERED: oxyCODONE/ACETAMINOPHEN 5 MG/325 MG TAB PO ONE (02:00)
[2017-07-10 05:35] VITALS: BP 129/69; PULSE 75; RESP 18; O2SAT 98
[2017-07-10 08:45] LABS: AUTOMATED NEUTROPHIL # 5.6 TH/MM3 (1.8-7.7); BASOPHIL # 0.1 TH/MM3 (0-0.2); BASOPHIL % 1.1 % (0.0-2.0); EOSINOPHIL # 0.2 TH/MM3 (0-0.4); EOSINOPHIL % 1.9 % (0.0-4.0); HEMATOCRIT 43.4 % (35.0-46.0); HEMO FLAGS DIFF FINAL; LYMPH % 40.3 % (9.0-44.0); LYMPHOCYTE # 4.5 TH/MM3 (1.0-4.8); MEAN CELL VOLUME 86.1 FL (80.0-100.0); MEAN CORPUSCULAR HEMOGLOBIN 28.4 PG (27.0-34.0); MONO % 6.2 % (0.0-8.0); NEUT % 50.5 % (16.0-70.0); PLATELET COUNT 279 TH/MM3 (150-450); RED BLOOD COUNT 5.04 MIL/MM3 (4.00-5.30); RED CELL DISTRIBUTION WIDTH 16.9 % (11.6-17.2); WHITE BLOOD COUNT 11.2 TH/MM3 (4.0-11.0)
[2017-07-10 09:05] LABS: ANION GAP 6 MEQ/L (5-15); AST (GOT) 11 U/L (15-37); BICARBONATE 26.2 MEQ/L (21.0-32.0); BLOOD UREA NITROGEN 12 MG/DL (7-18); CHLORIDE 107 MEQ/L (98-107); GLOMERULAR FILTRATION RATE 84 ML/MIN (>89); POTASSIUM 3.5 MEQ/L (3.5-5.1); SODIUM (NA) 139 MEQ/L (136-145)
[2017-07-10 09:33] LABS: ALKALINE PHOSPHATASE 89 U/L (45-117); ALT (GPT) 18 U/L (10-53); HDL CHOLESTEROL 32.1 MG/DL (40.0-60.0); LDL CHOLESTEROL 149 MG/DL (0-99); TOTAL BILIRUBIN ADULT 0.5 MG/DL (0.2-1.0)
[2017-07-10] MEDS ORDERED: PNEUMOCOCCAL POLYVALENT INJ 25 MCG/0.5 ML SYR IM ONE (10:00)
[2017-07-10 10:37] LABS: HEMOGLOBIN A1a 1.3 %; HEMOGLOBIN Ao 84.6 %; HEMOGLOBIN LA1C 1.9 %; HEMOGLOBIN P3 3.7 %
[2017-07-10] MEDS ORDERED: hydrOXYzine HCL 50 MG TAB PO PRN (15:30)
[2017-07-10] MEDS ORDERED: diphenhydrAMINE HCL 50 MG CAP PO PRN (15:30)
[2017-07-10] MEDS ORDERED: ALUMINUM/MAGNESIUM/SIMETH 30 ML CUP PO PRN (15:30)
[2017-07-10] MEDS ORDERED: MAGNESIUM HYDROXIDE SUSP 30 ML CUP PO PRN (15:30)
[2017-07-10] MEDS ORDERED: ACETAMINOPHEN 325 MG TAB PO PRN (15:30)
--- NOTE | 2017-07-10 15:53 | HHI.PYPN ---
Subjective Remarks Patient seen in her room with nurse Apryl. Chart reviewed. Patient initially seen by Dr. Fernandez. His initial H&P showed he felt that patient had capacity. My assessment today shows patient's inability to process her behaviors, the 2 suicide attempts within 24 hours. She shows no insight into her disease. Demanding discharge today, being quite profane with me verbally threatening with me. Thus I will initiate first opinion petition to support the Frank act. And request second opinion. Patient is stated she will not take medication or cooperate at all with the treatment. I feel she does not have capacity in that manner either thus I'll ask for healthcare surrogate and guardian advocate. We will have a wound consultation done she's had sutures in both wrists done yesterday morning. Patient seen as mentioned above her attitude was one of anger suspiciousness, entitlement and manipulation. She demanded to be discharged immediately. Showed no awareness of the Frank act or its criteria. I attempted to to 3 times to explain the initiation of the Frank act , the 72 hour criteria, the petitions to support Frank act, and the timeframe for Frank court appearance. Patient multiple times interrupted meet with anger outbursts loud and pressured speech. She also showed inability to process the fact of the 2 suicide attempts stating she did not remember cutting her wrists. She became more aggressive and perseverative to the point where I had to terminate the session because of its redundancy. Patient then became more angry and profane first calling me a "son of a bitch" and later called me a "f- ckin asshole" med reconciliation shows documentation of her being prescribed Prozac and Vistaril in the past though she refused to discuss this with me at all. Patient did very confusability and generally described depression and stress with her living situation. She states she has a mother living with her who has "issues" and her 2 children 3 and 6 years of age. She denied any alcohol or drug use recently In any event at the present time considering the severity and the repetitious this of recent suicide attempts at fluid she does meet criteria for further assessment under the Frank act. I feel she does not have capacity to make decisions concerning her admission ordered treatment thus I'll ask for healthcare surrogate. And we will also have a wound consult to monitor her recently sutured lacerations Review of Systems Constitutional: DENIES: Diaphoretic episodes, Fatigue, Fever, Weight gain, Weight loss, Chills, Dizziness, Change in appetite, Night Sweats Endocrine: DENIES: Abnorml menstrual pattern, Heat/cold intolerance, Polydipsia , Polyuria, Polyphagia Eyes: DENIES: Blurred vision, Diplopia, Eye inflammation, Eye pain, Vision loss , Photosensitivity, Double Vision Ears, nose, mouth, throat: DENIES: Tinnitus, Hearing loss, Vertigo, Nasal discharge, Oral lesions, Throat pain, Hoarseness, Ear Pain, Running Nose, Epistaxis, Sinus Pain, Toothache, Odynophagia Respiratory: DENIES: Apneas, Cough, Snoring, Wheezing, Hemoptysis, Sputum production, Shortness of breath Cardiovascular: DENIES: Chest pain, Palpitations, Syncope, Dyspnea on Exertion , PND, Lower Extremity Edema, Orthopnea, Claudication Gastrointestinal: DENIES: Abdominal pain, Black stools, Bloody stools, Constipation, Diarrhea, Nausea, Vomiting, Difficulty Swallowing, Anorexia Genitourinary: DENIES: Abnormal vaginal bleeding, Dysmenorrhea, Dyspareunia, Sexual dysfunction, Urinary frequency, Urinary incontinence, Urgency, Hematuria , Dysuria, Nocturia, Vaginal discharge Musculoskeletal: DENIES: Joint pain, Muscle aches, Stiffness, Joint Swelling, Back pain, Neck pain Integumentary: DENIES: Abnormal pigmentation, Pruritus, Rash, Nail changes, Breast masses, Breast skin changes, Nipple discharge Hematologic/lymphatic: DENIES: Bruising, Lymphadenopathy Immunologic/allergic: DENIES: Eczema, Urticaria Neurologic: DENIES: Abnormal gait, Headache, Localized weakness, Paresthesias, Seizures, Speech Problems, Tremor, Poor Balance Psychiatric: COMPLAINS OF: Depression, Agitation, Suicidal Ideation (attempts time to within 24 hours) Objective Alert: Yes [place]: Person, Place, Date, Situation Mood: Agitated, Angry, Anxious, Depressed, Oppositional Affect: Labile, Other (with increased range and intensity) Memory Intact: Comment (patient does not remember the lacerated wrist but that may be related to the drug overdose) Hallucinations: Other (denies) Delusions: No Delusion Type: Other Suicidal: Ideation (continues vague ideation though minimizing it. She did have 2 suicide attempts within 24 hours) Homicidal: Ideation (denies) Insight/Judgment Very poor Labs Test 07/10/17 08:04 White Blood Count 11.2 TH/MM3 Red Blood Count 5.04 MIL/MM3 Hemoglobin 14.3 GM/DL Hematocrit 43.4 % Mean Corpuscular Volume 86.1 FL Mean Corpuscular Hemoglobin 28.4 PG Mean Corpuscular Hemoglobin 33.0 % Concent Red Cell Distribution Width 16.9 % Platelet Count 279 TH/MM3 Mean Platelet Volume 8.4 FL Neutrophils (%) (Auto) 50.5 % Lymphocytes (%) (Auto) 40.3 % Monocytes (%) (Auto) 6.2 % Eosinophils (%) (Auto) 1.9 % Basophils (%) (Auto) 1.1 % Neutrophils # (Auto) 5.6 TH/MM3 Lymphocytes # (Auto) 4.5 TH/MM3 Monocytes # (Auto) 0.7 TH/MM3 Eosinophils # (Auto) 0.2 TH/MM3 Basophils # (Auto) 0.1 TH/MM3 CBC Comment DIFF FINAL Differential Comment Sodium Level 139 MEQ/L Potassium Level 3.5 MEQ/L Chloride Level 107 MEQ/L Carbon Dioxide Level 26.2 MEQ/L Anion Gap 6 MEQ/L Blood Urea Nitrogen 12 MG/DL Creatinine 0.77 MG/DL Estimat Glomerular Filtration 84 ML/MIN Rate Random Glucose 89 MG/DL Hemoglobin A1c 5.9 % Calcium Level 8.5 MG/DL Total Bilirubin 0.5 MG/DL Aspartate Amino Transf 11 U/L (AST/SGOT) Alanine Aminotransferase 18 U/L (ALT/SGPT) Alkaline Phosphatase 89 U/L Total Protein 6.4 GM/DL Albumin 3.1 GM/DL Triglycerides Level 260 MG/DL Cholesterol Level 233 MG/DL LDL Cholesterol 149 MG/DL HDL Cholesterol 32.1 MG/DL Cholesterol/HDL Ratio 7.25 RATIO Vitamin B12 Level 642 PG/ML 25-Hydroxy Vitamin D Total 13.4 ng/ML Thyroid Stimulating Hormone 2.310 uIU/ML 3rd Gen Vitals/IOs Vital Signs Date Time Temp Pulse Resp B/P Pulse Ox O2 Delivery O2 Flow Rate FiO2 07/10/17 05:35 75 18 129/69 98 07/09/17 20:30 98.4 07/09/17 09:49 Nasal Cannula 2 Assessment & Plan Problem List: (1) Major depression, recurrent ICD Code: F33.9 (2) Borderline personality disorder ICD Code: F60.3 Assessment & Plan Estimated LOS: days patient continues loud angry irritable and profane. Showing no insight into her behaviors that led to this hospitalization. Showing a marked abnormal willingness to listen or process any discussion related to the criteria of the Frank act. At this time we'll continue the Frank act I'll do first opinion requests second opinion. Also. Does not have capacity thus I'll ask for healthcare surrogate and guardian advocate. Patient states she will refuse all medications and treatment. For now we will continue to monitor and observe. We will have long consult. Justification for Cont. Inpt. At this time patient would severely decompensate if placed in the lower level of care Discharge Planning To be determined Request HC Surrog/Guard Advoc?: Yes Problem Qualifiers (1) Major depression, recurrent: Qualified Code: F33.2 - Severe episode of recurrent major depressive disorder, without psychotic features Roberto Ontiveros MD Jul 10, 2017 15:53
[2017-07-10 18:00] VITALS: BP 105/57; PULSE 105; RESP 18; TEMP 97.9; O2SAT 98
[2017-07-11 06:15] VITALS: BP 136/78; PULSE 82; RESP 18; TEMP 98.1; O2SAT 96
[2017-07-11] MEDS: NICOTINE 21 MG/24 HR PATCH T-DERMAL SCH (09:00)
--- NOTE | 2017-07-11 10:19 | HHI.PYPN ---
Subjective Remarks Patient seen in room with nurse Unique. Chart review. Patient showing markedly improved cooperation with me. She is calm cooperative with improved eye contact. She now endorses significantly depressed mood related to living situation finances and being a single parent. She states she's had this depressed mood getting worse over the past few months. She states she is alert Unique Prozac for about 5 days. She acknowledges crying spells initial insomnia , followed at times by hypersomnia, there is marked anhedonia, decreased concentration and attention, decreased coping skills. Along with this suicidality. We did discuss medications. She states she has been on multiple medications in the past with mixed success. We'll start patient on Remeron 15 mg at at bedtime. At this time we will transfer patient 2600 I feel she would benefit from the milligram that unit. Patient continues to do well be consistent with a behavior consider discharge in 1-2 days with follow-up in the community. Patient said her wounds redressed today there appear to be doing well Review of Systems Except as stated in HPI: all other systems reviewed are Neg Objective Alert: Yes [place]: Person, Place, Date, Situation Mood: Anxious, Calm, Depressed Affect: Restricted (mildly), Other (with increased range and intensity) Memory Intact: Comment (patient does not remember the lacerated wrist but that may be related to the drug overdose) Hallucinations: Other (denies) Delusions: No Delusion Type: Other Suicidal: Ideation (continues vague ideation though minimizing it. She did have 2 suicide attempts within 24 hours) Homicidal: Ideation (denies) Insight/Judgment Poor Vitals/IOs Vital Signs Date Time Temp Pulse Resp B/P Pulse Ox O2 Delivery O2 Flow Rate FiO2 07/11/17 06:15 98.1 82 18 136/78 96 07/09/17 09:49 Nasal Cannula 2 Assessment & Plan Problem List: (1) Major depression, recurrent ICD Code: F33.9 (2) Borderline personality disorder ICD Code: F60.3 Assessment & Plan Estimated LOS: days patient continues significantly depressed vague suicidality though she denies it today. She is more cooperative today with some mild insight. Will start patient on Remeron 15 mg at bedtime transfer patient 2600 unit for further care Justification for Cont. Inpt. At this time patient will decompensate if placed in the lower level of care Discharge Planning To be determined Request HC Surrog/Guard Advoc?: Yes Problem Qualifiers (1) Major depression, recurrent: Qualified Code: F33.2 - Severe episode of recurrent major depressive disorder, without psychotic features Roberto Ontiveros MD Jul 11, 2017 10:19
[2017-07-11] MEDS ORDERED: NEOMYCIN/POLYMYXIN/BACITRACIN OINT 15 GM TUBE TOPICAL SCH (11:00)
[2017-07-11] MEDS: IBUPROFEN 600 MG TAB PO PRN ×2 (11:56→20:45)
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
--- NOTE | 2017-07-11 14:47 | PD.CONS ---
[facility] Requested By Dr. Ontiveros Reason for Consult Assist with management of medical condition Primary Care Physician Unknown Diagnoses: History of Present Illness Written by Inez De La O, acting as scribe for Dr. Mendes on 07/11/17 at 14:46. This a 36-year-old obese female patient with a past medical history which includes osteoarthritis, migraine headaches, asthma, GERD, eczema and anxiety/ depression. Patient is currently in inpatient psychiatric unit we have been consulted for assistance in management of medical condition. Patient reports she took, "a lot," of Vistaril and tramadol and a suicide attempt on 07/08/2017. Patient awoke the next morning and cut bilateral wrist then called ambulance and was brought to the emergency department. Bilateral wrist are currently dressed, dressing dry and intact. In review of ER documentation Left wrist laceration 5 cm sutured on 07/09/2017. Right wrist laceration 3 cm sutured 2016. Patient appears to be in no acute distress at this time. Patient endorses mild dizziness which seems to be slowly improving. No focal deficits reported no changes in vision. Denies shortness of breath nausea vomiting diarrhea constipation fevers or chills Review of Systems Except as stated in HPI: all other systems reviewed are Neg Past Family Social History Allergies: Coded Allergies: cephalexin (Unverified Allergy, Severe, Rash, "thoat tightness", 07/10/17) sulfamethoxazole (Unverified Allergy, Severe, Rash, "throat tightness", ) trimethoprim (Unverified Allergy, Severe, Rash, "throat tightness", ) Past Medical History osteoarthritis, migraine headaches, asthma, GERD, eczema and anxiety/depression Past Surgical History Tonsillectomy, tubal ligation, section, right breast lumpectomy, pilonidal cyst removed, urethral diverticula resected Reported Medications Hydroxyzine HCl 25 Mg Tab 1-2 Tab PO QID PRN Proventil Hfa 6.7 GM Inh (Albuterol Sulfate) 90 Mcg/Act Aer 2 Puff INH Q4-6H PRN Prozac (Fluoxetine HCl) 20 Mg Cap 20 Mg PO DAILY Omeprazole [id number] Active Ordered Medications Current Medications Medications (Trade) Dose Ordered Sig/Valerie Route Start Time Stop Time Status Last Admin (Ativan) 1 mg Q6H PRN PO 07/09/17 15:00 Hold (Ativan Inj) 1 mg Q6H PRN IM 07/09/17 15:00 Hold (Milk Of Magnesia Liq) 30 ml DAILY PRN PO 07/09/17 15:00 (Mag-Al Plus Susp Liq) 30 ml Q6H PRN PO 07/09/17 15:00 (Benadryl) 50 mg HS PRN PO 07/10/17 15:30 Hold (Habitrol 21 Mg Patch.24 Hr) 1 patch DAILY T-DERMAL 07/11/17 09:00 (Atarax) 50 mg Q6H PRN PO 07/10/17 15:30 Hold Miscellaneous Information 1 HS T-DERMAL 07/11/17 21:00 (Remeron) 15 mg HS PO 07/11/17 21:00 (Motrin) 600 mg Q6HR PRN PO 07/11/17 11:00 07/11/17 11:56 (Neosporin Oint) 1 applic DAILY TOPICAL 07/11/17 11:00 Family History Maternal grandfather positive for Paget's disease Mother positive for multiple sclerosis Father positive for PTSD Social History EtOH use rare Tobacco use 2 packs per day Illicit drug use admits to marijuana denies other illicit drugs Physical Exam Vital Signs Vital Signs Date Time Temp Pulse Resp B/P Pulse Ox O2 Delivery O2 Flow Rate FiO2 07/11/17 06:15 98.1 82 18 136/78 96 07/10/17 18:00 97.9 105 18 105/57 98 Physical Exam GENERAL: This is an obese, well-developed patient, in no apparent distress. SKIN: Bilateral wrist dressings present transplant intact HEAD: Atraumatic. Normocephalic. No temporal or scalp tenderness. EYES: Extraocular motions intact. No scleral icterus. No injection or drainage. ENT: Nose without bleeding, purulent drainage or septal hematoma. Throat without erythema, tonsillar hypertrophy or exudate. Uvula midline. Airway patent. NECK: Trachea midline. No JVD or lymphadenopathy. Supple, nontender, no meningeal signs. CARDIOVASCULAR: Regular rate and rhythm without murmurs, gallops, or rubs. RESPIRATORY: Clear to auscultation. Breath sounds equal bilaterally. No wheezes , rales, or rhonchi. GASTROINTESTINAL: Abdomen soft, non-tender, nondistended. No guarding. MUSCULOSKELETAL: Extremities without clubbing, cyanosis, or edema. No joint tenderness, effusion, or edema noted. No calf tenderness. Negative Homans sign bilaterally. NEUROLOGICAL: Awake and alert. Motor and sensory grossly within normal limits. Five out of 5 muscle strength in all muscle groups. Normal speech. Result Diagram: 07/10/17 0804 07/10/17 0804 Imaging Last Impressions Upper Extremity CTA 07/09/17 0759 Signed Impressions: Service Date/Time: Sunday, July 09, 2017 09:10 - CONCLUSION: There is no active extravasation. Both the radial and ulnar artery are present at the wrist. There is some air around the radial artery at the site of trauma without active extravasation. Ruddy Galarza MD FACR Assessment and Plan Assessment and Plan This a 36-year-old obese female patient with a past medical history which includes osteoarthritis, migraine headaches, asthma, GERD, eczema and anxiety/ depression. Patient is currently in inpatient psychiatric unit we have been consulted for assistance in management of medical condition. Patient reports she took, "a lot," of Vistaril and tramadol and a suicide attempt on 07/08/2017. Patient awoke the next morning and cut bilateral wrist then called ambulance and was brought to the emergency department. Bilateral wrist are currently dressed, dressing dry and intact. In review of ER documentation Left wrist laceration 5 cm sutured on 07/09/2017. Right wrist laceration 3 cm sutured 2016. Anxiety/depression with suicide attemptt: Management per psychiatric team Laceration bilateral wrist: Upper extremity CTA reviewed and reveals: There is no active extravasation. Both the radial and ulnar artery are present at the wrist. There is some air around the radial artery at the site of trauma without active extravasation. Bilateral wrist sutured in emergency department 07/09/2017 Dressing dry and intact consult wound care Overdose of Vistaril and tramadol: Initial EKG 07/09/2017 reviewed sinus rhythm rate 87 QTC 401 Osteoarthritis: Tylenol as needed for pain Asthma: Rescue inhaler as needed GERD: Omeprazole 20 mg daily DVT prophylaxis patient is in between low risk This note was transcribed by [place]. I, Dr. Jeison Neves personally performed the history, physical exam, and medical decision making; and confirmed the accuracy of the information in the transcribed note. Authenticated by Dr. Jeison Neves on 07/11/17 at 14:57. Inez De La O Jul 11, 2017 14:46 Jeison Motta MD Jul 12, 2017 23:29
[2017-07-11] MEDS ORDERED: REMOVE OLD PATCH T-DERMAL SCH (21:00)
[2017-07-11] MEDS ORDERED: MIRTAZAPINE 15 MG TAB PO SCH (21:00)
[2017-07-12 05:27] VITALS: BP 124/69; PULSE 66; RESP 16; TEMP 98.2; O2SAT 98
[2017-07-12] MEDS: NICOTINE 21 MG/24 HR PATCH T-DERMAL SCH (08:41)
[2017-07-12 12:27] LABS: AUTOMATED NEUTROPHIL # 6.4 TH/MM3 (1.8-7.7); BASOPHIL # 0.1 TH/MM3 (0-0.2); EOSINOPHIL # 0.2 TH/MM3 (0-0.4); EOSINOPHIL % 1.8 % (0.0-4.0); HEMATOCRIT 42.5 % (35.0-46.0); HEMO FLAGS DIFF FINAL; LYMPH % 30.6 % (9.0-44.0); LYMPHOCYTE # 3.2 TH/MM3 (1.0-4.8); MEAN CELL VOLUME 86.6 FL (80.0-100.0); MEAN CORPUSCULAR HGB CONC 33.5 % (32.0-36.0); MONO % 4.8 % (0.0-8.0); NEUT % 61.8 % (16.0-70.0); PLATELET COUNT 268 TH/MM3 (150-450); RED BLOOD COUNT 4.91 MIL/MM3 (4.00-5.30); RED CELL DISTRIBUTION WIDTH 16.5 % (11.6-17.2); WHITE BLOOD COUNT 10.3 TH/MM3 (4.0-11.0)
[2017-07-12] MEDS ORDERED: AUGM500T7 PO (12:33)
[2017-07-12] MEDS ORDERED: LIPI10TA PO (12:35)
[2017-07-12 13:02] LABS: BICARBONATE 26.5 MEQ/L (21.0-32.0); MAGNESIUM 2.1 MG/DL (1.5-2.5); POTASSIUM 4.2 MEQ/L (3.5-5.1)
[2017-07-12] MEDS ORDERED: LEVO500T8 PO (13:25)
[2017-07-12] MEDS ORDERED: AMOXICILLIN/CLAVULANATE K 500 MG TAB PO SCH (13:30)
[2017-07-12] MEDS ORDERED: MAGNESIUM HYDROXIDE SUSP 30 ML CUP PO ONE (13:30)
[2017-07-12] MEDS ORDERED: LEVOFLOXACIN 500 MG TAB PO SCH (13:30)
--- NOTE | 2017-07-12 13:39 | HHI.PR ---
Subjective Remarks Follow up: Laceration bilateral wrist, Vistaril and tramadol OD, OA, asthma and GERD. Patient reports dizziness is better today. Overall feels better today Wanting to go home- reports that she plan to follow up with the [facility]- she reports that she is an established patient there Denies N/V, shortness of breath, chest pain, fevers or chills. Reports pain L wrist > than right also reports constipation last BM 3 days ago, reports positive flatus, denies abd pain Objective Vitals Vital Signs Date Time Temp Pulse Resp B/P Pulse Ox O2 Delivery O2 Flow Rate FiO2 07/12/17 05:27 98.2 66 16 124/69 98 Result Diagram: 07/12/17 1141 07/12/17 1141 Imaging Last Impressions Upper Extremity CTA 07/09/17 0759 Signed Impressions: Service Date/Time: Sunday, July 09, 2017 09:10 - CONCLUSION: There is no active extravasation. Both the radial and ulnar artery are present at the wrist. There is some air around the radial artery at the site of trauma without active extravasation. Ruddy Galarza MD FACR Objective Remarks GENERAL: This is an obese, well-developed patient, in no apparent distress. SKIN: Bilateral wrist sutured edges well approximated no drainage or redness noted HEAD: Atraumatic. Normocephalic. No temporal or scalp tenderness. EYES: Extraocular motions intact. No scleral icterus. No injection or drainage. CARDIOVASCULAR: Regular rate and rhythm without murmurs, gallops, or rubs. RESPIRATORY: Clear to auscultation. Breath sounds equal bilaterally. No wheezes , rales, or rhonchi. GASTROINTESTINAL: Abdomen soft, non-tender, nondistended. No guarding. positive bowel sounds x 4 quadrants MUSCULOSKELETAL: Extremities without clubbing, cyanosis, or edema. No joint tenderness, effusion, or edema noted. No calf tenderness. Negative Homans sign bilaterally. NEUROLOGICAL: Awake and alert. Motor and sensory grossly within normal limits. Five out of 5 muscle strength in all muscle groups. Normal speech. A/P Assessment and Plan This a 36-year-old obese female patient with a past medical history which includes osteoarthritis, migraine headaches, asthma, GERD, eczema and anxiety/ depression. Patient is currently in inpatient psychiatric unit we have been consulted for assistance in management of medical condition. Patient reports she took, "a lot," of Vistaril and tramadol and a suicide attempt on 07/08/2017. Patient awoke the next morning and cut bilateral wrist then called ambulance and was brought to the emergency department. Bilateral wrist are currently dressed, dressing dry and intact. In review of ER documentation Left wrist laceration 5 cm sutured on 07/09/2017. Right wrist laceration 3 cm sutured 2016. Anxiety/depression with suicide attemptt: Management per psychiatric team Laceration bilateral wrist: Upper extremity CTA reviewed and reveals: There is no active extravasation. Both the radial and ulnar artery are present at the wrist. There is some air around the radial artery at the site of trauma without active extravasation. Bilateral wrist sutured in emergency department 07/09/2017- will need to follow up with PCP or ER for suture removal in 10 - 14 days patient reports pain L>R wrist concerned for possible infection start Levaquin 500mg PO daily x 7 days, patient allergic to Bactrim and cephalexin consult wound care Overdose of Vistaril and tramadol: Initial EKG 07/09/2017 reviewed sinus rhythm rate 87 QTC 401 repeat EKG ordered Osteoarthritis: Tylenol as needed for pain Asthma: Rescue inhaler as needed Constipation milk of magnesia x 1 now Colace daily Hyperlipidemia start Lipitor 10 mg daily recommend patient follow up with PCP for monitoring and adjustment Also recommend low fat low cholesterol diet and exercise 5 or more days per week DVT prophylaxis patient is in between low risk Discussed with patient, nursing and Inez Emerson Jul 12, 2017 13:39
[2017-07-12] MEDS ORDERED: MIRTA15 PO (14:04)
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
[2017-07-12] MEDS ORDERED: DOCUSATE SODIUM 100 MG CAP PO SCH (21:00)
[2017-07-12] MEDS ORDERED: ATORVASTATIN 10 MG TAB PO SCH (21:00)
--- NOTE | 2017-07-13 09:21 | EKG ---
Date Performed: 07/12/2017 Time Performed: 14:54:21 PTAGE: 36 years EKG: Sinus rhythm NORMAL ECG Compared to prior tracing no significant change PREVIOUS TRACING : 07/09/2017 08.44 DOCTOR: Randell Jacome Interpretating Date/Time 07/13/2017 09:17:35
== END 2017-07-12 16:15 | disposition home or self-care (01) | DRG 885 ==
LOC: NEPE 07:22 → NEDA 14:54 → H270 20:00 → H260 07-11 16:41
PROVIDERS: ADMIT Psychiatry & Neurology Psychiatry; ATTEND Psychiatry & Neurology Psychiatry
PROC: 0HQEXZZ Repair Left Lower Arm Skin, External Approach (ICD-10-PCS; principal; 2017-07-09)
PROC: 0HQDXZZ Repair Right Lower Arm Skin, External Approach (ICD-10-PCS; 2017-07-09)
DX: F33.2 Major depressive disorder, recurrent severe without psychotic features (principal); F60.3 Borderline personality disorder; E78.5 Hyperlipidemia, unspecified; E66.9 Obesity, unspecified; F41.9 Anxiety disorder, unspecified; F17.210 Nicotine dependence, cigarettes, uncomplicated; J45.909 Unspecified asthma, uncomplicated; M19.90 Unspecified osteoarthritis, unspecified site; S61.511A Laceration without foreign body of right wrist, initial encounter; S61.512A Laceration without foreign body of left wrist, initial encounter; T40.4X2A Poisoning by other synthetic narcotics, intentional self-harm, initial encounter; T43.592A Poisoning by other antipsychotics and neuroleptics, intentional self-harm, initial encounter; K21.9 Gastro-esophageal reflux disease without esophagitis; L30.9 Dermatitis, unspecified; L40.9 Psoriasis, unspecified; K59.00 Constipation, unspecified; Z68.38 Body mass index [BMI] 38.0-38.9, adult; Z79.899 Other long term (current) drug therapy; Z62.810 Personal history of physical and sexual abuse in childhood; Z91.5 Personal history of self-harm; X78.8XXA Intentional self-harm by other sharp object, initial encounter
CPT/HCPCS: 12004; 73206; 80048; 80053; 80061; 80307; 82306; 82607; 83036; 83735; 84443; 85025; 93005; 96360; J7030; Q9967

== ENCOUNTER 2018-03-01 13:37 | Emergency (ER) | payer MEDICAID, OTHER ==
[~2018-03-01] VITALS: Ht 167.6 cm; Wt 114.0 kg
[~2018-03-01 13:37] MED LIST changes: +LEVO500T8 PO; +LIPI10TA PO; +MIRTA15 PO
[2018-03-01 13:41] VITALS: BP 147/98; PULSE 97; RESP 16; TEMP 99.2; O2SAT 99
--- NOTE | 2018-03-01 13:59 | PD ---
HPI Chief Complaint: Pain: Acute or Chronic Time Seen by Provider: 13:46 Travel History International Travel<30 days: No Contact w/Intl Traveler<30days: No Traveled to known affect area: No History of Present Illness HPI 37-year-old female presents to the emergency department for evaluation of left knee swelling that started yesterday. She denies a traumatic injury. She states she was in a hurry to move out of someplace yesterday and may have twisted it during the moving process. Patient is requesting that I drain the left knee with a needle. The patient is upset when I instruct her that this is not an appropriate treatment at this time. Patient denies any fevers or chills. She denies any other symptoms or complaints at this time. Current pain is 8/10 to the left anterior knee, without radiation, aching. Mild severity. PFSH Past Medical History Hx Anticoagulant Therapy: No Arthritis: No Asthma: Yes Autoimmune Disease: No Anxiety: Yes Depression: Yes Heart Rhythm Problems: No Cancer: No Cardiovascular Problems: No High Cholesterol: No Chemotherapy: No Chest Pain: No Congestive Heart Failure: No COPD: No Cerebrovascular Accident: No Diabetes: No Diminished Hearing: No Endocrine: No Gastrointestinal Disorders: Yes (ULCERATIVE COLITIS) GERD: Yes Genitourinary: No Headaches: No Hiatal Hernia: No Heparin Induced Thrombocytopen: No Hypertension: No Immune Disorder: No Implanted Vascular Access Dvce: No Kidney Stones: No Musculoskeletal: Yes (chronic left knee pain.) Neurologic: No Psychiatric: Yes (Hx of depression beginning at age 9, PTSD) Reproductive: No Respiratory: Yes (tubal ) Integumentary: Yes (Psoriasis, eczema) Migraines: Yes (GETS VISION CHANGES DURING MIGRAINE) Radiation Therapy: No Renal Failure: No Seizures: No Sickle Cell Disease: No Sleep Apnea: No Thyroid Disease: No Ulcer: No PNEUMOCCOCAL Vaccine (Year): 2 ?: Not Tubal Ligation: Yes Past Surgical History Abdominal Surgery: No AICD: No Arteriovenous Shunt: No Cardiac Surgery: No Section: Yes (X's 2) Ear Surgery: No Endocrine Surgery: No Eye Surgery: No (Blind spot on eye) Genitourinary Surgery: No Gynecologic Surgery: Yes (tubal ligation) Insulin Pump: No Joint Replacement: No Neurologic Surgery: No Oral Surgery: No Pacemaker: No Thoracic Surgery: No Tonsillectomy: Yes Social History Alcohol Use: Yes (OCC) Tobacco Use: Yes (2ppd) Substance Use: Yes (occasional THC) Allergies-Medications (Allergen,Severity, Reaction): Coded Allergies: cephalexin (Unverified Allergy, Severe, Rash, "thoat tightness", 03/01/18) sulfamethoxazole (Unverified Allergy, Severe, Rash, "throat tightness", 03/01/18) trimethoprim (Unverified Allergy, Severe, Rash, "throat tightness", 03/01/18 ) Reported Meds & Prescriptions Reported Meds & Active Scripts Active Mirtazapine 15 Mg Tab 15 Mg PO HS Levofloxacin 500 Mg Tablet 500 Mg PO DAILY Lipitor (Atorvastatin Calcium) 10 Mg Tab 10 Mg PO HS Hydroxyzine HCl 25 Mg Tab 1-2 Tab PO QID PRN Prednisone 20 Mg Tab 40 Mg PO DAILY 4 Days Proventil Hfa 6.7 GM Inh (Albuterol Sulfate) 90 Mcg/Act Aer 2 Puff INH Q4-6H PRN Reported Prozac (Fluoxetine HCl) 20 Mg Cap 20 Mg PO DAILY Review of Systems Except as stated in HPI: all other systems reviewed are Neg Physical Exam Narrative GENERAL: Well-nourished, well-developed female patient, afebrile SKIN: Focused skin assessment warm/dry. No erythema or warmth over left knee HEAD: Normocephalic. Atraumatic EYES: No scleral icterus. No injection or drainage. NECK: Supple, trachea midline. No JVD or lymphadenopathy. CARDIOVASCULAR: Regular rate and rhythm without murmurs, gallops, or rubs. Left pedal pulse is 2+ RESPIRATORY: Breath sounds equal bilaterally. No accessory muscle use. Lung sounds are clear to auscultation GASTROINTESTINAL: Abdomen soft, non-tender, nondistended. MUSCULOSKELETAL: No cyanosis, or edema. No reproducible tenderness over left anterior knee. Very mild swelling noted. She has limited flexion due to pain. BACK: Nontender without obvious deformity. No CVA tenderness. Data Data Last Documented VS Vital Signs Date Time Temp Pulse Resp B/P (MAP) Pulse Ox O2 Delivery O2 Flow Rate FiO2 03/01/18 13:41 99.2 97 16 147/98 (114) 99 Orders Orders Splint Or Brace Apply/Monitor (03/01/18 13:53) Crutches (03/01/18 13:53) MDM Medical Decision Making Medical Screen Exam Complete: Yes Emergency Medical Condition: Yes Medical Record Reviewed: Yes Differential Diagnosis Knee sprain versus fracture versus contusion Narrative Course 37-year-old female presents to the emergency department for evaluation of left knee pain that started last night. Patient is requesting that I drain the left knee with a needle. There is very mild swelling on exam. There is no indication to drain any fluid off the knee at this time. In fact, I would prefer to not stick a needle into a joint that appears well. The patient is upset that this will not be done. She is reassured that her body will reabsorb any fluid. I discussed doing an x-ray, but the patient declines. She is provided Mason bandage and crutches. The patient was discharged in stable condition with instructions, including return instructions and follow up instructions. Diagnosis Primary Impression: Left knee sprain Qualified Codes: S83.92XA - Sprain of unspecified site of left knee, initial encounter Referrals: Primary Care Physician call for appointment Patient Instructions: General Instructions, Knee Sprain (ED) Additional Instructions: Wear Mason bandage and crutches as needed for support. Ice for 20 minutes 4-5 times daily. [id number] Tylenol or ibuprofen as needed for pain. Follow-up with a primary care physician. Return to the emergency department for any acute worsening of symptoms. Med/Other Pt SpecificInfo: No Change to Meds Disposition: 01 DISCHARGE HOME Condition: Stable Xenia Grider Mar 01, 2018 13:59
== END 2018-03-01 14:17 | disposition home or self-care (01) ==
LOC: PHEFT 13:37
DX: S83.92XA Sprain of unspecified site of left knee, initial encounter (principal); J45.909 Unspecified asthma, uncomplicated; F32.9 Major depressive disorder, single episode, unspecified; K21.9 Gastro-esophageal reflux disease without esophagitis; F43.10 Post-traumatic stress disorder, unspecified; F17.200 Nicotine dependence, unspecified, uncomplicated; X50.1XXA Overexertion from prolonged static or awkward postures, initial encounter; Z79.899 Other long term (current) drug therapy; Z87.19 Personal history of other diseases of the digestive system
CPT/HCPCS: 99282; E0113